=== PATIENT | male | born 1955 | race Two or more races ===

== ENCOUNTER 2023-06-20 18:13 | Inpatient (IN) | payer MEDICARE, BC ==
[2023-06-20 19:46] LABS: B. PARAPERTUSSIS- RESP PCR PAN NOT DETECTED; B. PERTUSSIS- RESP PCR PANEL NOT DETECTED; C. PNEUMONIAE- RESP PCR PANEL NOT DETECTED; CORONAVIRUS 229E-RESP PCR NOT DETECTED; CORONAVIRUS HKU1-RESP PCR NOT DETECTED; CORONAVIRUS NL63-RESP PCR NOT DETECTED; CORONAVIRUS OC43-RESP PCR NOT DETECTED; HUMAN METAPNEUMOVIRUS NOT DETECTED; INFLUENZA A- RESP PCR PANEL NOT DETECTED; INFLUENZA B - RESP PCR PANEL NOT DETECTED; M. PNEUMONIAE- RESP PCR PANEL NOT DETECTED; PARAINFLUENZA VIRUS 1 NOT DETECTED; PARAINFLUENZA VIRUS 2 NOT DETECTED; PARAINFLUENZA VIRUS 3 NOT DETECTED; PARAINFLUENZA VIRUS 4 NOT DETECTED; RHINOVIRUS/ENTEROVIRUS NOT DETECTED; RSV- RESP PCR PANEL NOT DETECTED; SARS-CoV-2 -RESP PCR PANEL NOT DETECTED
--- NOTE | 2023-06-20 19:51 | ED Physician Documentation ---
History of Present Illness - Stated complaint Stated Complaint: BODY ACHES/CHILLS - Chief complaint Chief Complaint: Fever - History obtained from History obtained from: Patient - History of Present Illness Timing: How many days ago (3) Pain level max: 6 Pain level now: 5 - Additonal information Additional information: Patient is a 68-year-old male who presents to the emergency department with fever and chills, states that this started about 3 days ago. States generally feeling unwell. He has left flank/left abdominal pain as well. Nothing seems to make it better or worse. No rhinorrhea, cough, congestion. No sore throat. No nausea or vomiting. No diarrhea or constipation. No urinary symptoms. Review of Systems Constitutional: reports: Fever, Chills, Myalgias Nose: denies: Rhinorrhea / runny nose, Congestion Throat: denies: Sore throat GI: denies: Vomiting : denies: Dysuria, Frequency, Hesitancy Skin: denies: Rash Musculoskeletal: denies: Neck pain, Back pain Neurologic: denies: Headache PD PAST MEDICAL HISTORY - Past Medical History Past Medical History: Yes Endocrine/Autoimmune: Type 2 diabetes - Past Surgical History Past Surgical History: No - Allergies Allergies/Adverse Reactions: Allergies Allergy/AdvReac Type Severity Reaction Status Date / Time VALE Inhibitors AdvReac Unknown Verified 06/20/23 18:33 - Living Situation Living Situation: reports: With family Living Arrangement: reports: At home - Social History Does the pt have substance abuse?: No - Family History Family history: reports: Non contributory PD ED PE NORMAL - Vitals Vital signs reviewed: Yes - General General: Alert and oriented X 3, No acute distress - HEENT HEENT: PERRL, Moist mucous membranes - Neck Neck: Supple, no meningeal sign - Cardiac Cardiac: RRR, Strong equal pulses - Respiratory Respiratory: No respiratory distress, Clear bilaterally - Abdomen Abdomen: Normal bowel sounds, Soft, Non tender, Non distended - Back Back: Other (Mild left CVA tenderness to palpation) - Derm Derm: Warm and dry - Extremities Extremities: No edema, No calf tenderness / cord - Neuro Neuro: Alert and oriented X 3 - Psych Psych: Normal mood, Normal affect Results - Vitals Vitals: Vital Signs - 24 hr 06/20/23 18:34 Temperature 38.1 C H Heart Rate 87 Respiratory 18 Rate Blood Pressure 124/63 O2 Saturation 95 Oxygen O2 Source Room air - Labs Labs: Laboratory Tests 06/20/23 06/20/23 06/20/23 18:40 20:12 20:17 WBC 9.0 RBC 4.54 L Hgb 14.3 Hct 42.2 MCV 93.0 MCH 31.5 H MCHC 33.9 RDW 12.1 Plt Count 184 MPV 8.3 Neut # (Auto) 7.0 H Lymph # (Auto) 0.6 L Weber # (Auto) 1.3 H Eos # (Auto) 0.0 Baso # (Auto) 0.0 Absolute Nucleated RBC 0.00 Nucleated RBC % 0.0 Sodium Potassium Chloride Carbon Dioxide Anion Gap BUN Creatinine Estimated GFR (MDRD) Glucose Lactic Acid Calcium Total Bilirubin AST ALT Alkaline Phosphatase Total Protein Albumin Globulin Albumin/Globulin Ratio Lipase Urine Color YELLOW Urine Clarity CLEAR Urine pH 6.0 Ur Specific [place] <=1.005 Urine Protein NEGATIVE Urine Glucose (UA) NEGATIVE Urine Ketones NEGATIVE Urine Occult Blood SMALL H Urine Nitrite NEGATIVE Urine Bilirubin NEGATIVE Urine Urobilinogen 0.2 (NORMAL) Ur Leukocyte Esterase LARGE H Urine RBC 0-5 Urine WBC >25 H Ur Squamous Epith Cells NONE SEEN Urine Bacteria Rare Ur Microscopic Review INDICATED Urine Culture Comments INDICATED Nasal Adenovirus (PCR) NOT DETECTED Nasal B. parapertussis DNA (PCR) NOT DETECTED Nasal Coronavir 229E PCR NOT DETECTED Nasal Coronavir HKU1 PCR NOT DETECTED Nasal Coronavir NL63 PCR NOT DETECTED Nasal Coronavir OC43 PCR NOT DETECTED Nasal Enterovir/Rhinovir PCR NOT DETECTED Nasal Influenza B PCR NOT DETECTED Nasal Influenza A PCR NOT DETECTED Nasal Parainfluen 1 PCR NOT DETECTED Nasal Parainfluen 2 PCR NOT DETECTED Nasal Parainfluen 3 PCR NOT DETECTED Nasal Parainfluen 4 PCR NOT DETECTED Nasal RSV (PCR) NOT DETECTED Nasal B.pertussis DNA PCR NOT DETECTED Nasal C.pneumoniae (PCR) NOT DETECTED Tarun Human Metapneumo PCR NOT DETECTED Nasal M.pneumoniae (PCR) NOT DETECTED Nasal SARS-CoV-2 (PCR) NOT DETECTED 06/20/23 06/20/23 20:17 20:17 WBC RBC Hgb Hct MCV MCH MCHC RDW Plt Count MPV Neut # (Auto) Lymph # (Auto) [place] # (Auto) Eos # (Auto) Baso # (Auto) Absolute Nucleated RBC Nucleated RBC % Sodium 132 L Potassium 4.4 Chloride 97 L Carbon Dioxide 26 Anion Gap 9.0 BUN 18 Creatinine 1.8 H Estimated GFR (MDRD) 38 L Glucose 150 H Lactic Acid 0.7 Calcium 9.8 Total Bilirubin 0.7 AST 71 H ALT 61 H Alkaline Phosphatase 84 Total Protein 7.5 Albumin 4.2 Globulin 3.3 Albumin/Globulin Ratio 1.3 Lipase 70 Urine Color Urine Clarity Urine pH Ur Specific [place] Urine Protein Urine Glucose (UA) Urine Ketones Urine Occult Blood Urine Nitrite Urine Bilirubin Urine Urobilinogen Ur Leukocyte Esterase Urine RBC Urine WBC Ur Squamous Epith Cells Urine Bacteria Ur Microscopic Review Urine Culture Comments Nasal Adenovirus (PCR) Nasal B. parapertussis DNA (PCR) Nasal Coronavir 229E PCR Nasal Coronavir HKU1 PCR Nasal Coronavir NL63 PCR Nasal Coronavir OC43 PCR Nasal Enterovir/Rhinovir PCR Nasal Influenza B PCR Nasal Influenza A PCR Nasal Parainfluen 1 PCR Nasal Parainfluen 2 PCR Nasal Parainfluen 3 PCR Nasal Parainfluen 4 PCR Nasal RSV (PCR) Nasal B.pertussis DNA PCR Nasal C.pneumoniae (PCR) Tarun Human Metapneumo PCR Nasal M.pneumoniae (PCR) Nasal SARS-CoV-2 (PCR) - Rads (name of study) CT abdomen pelvis Relevant Findings:: Final report received, See rad report cxr Relevant Findings:: Final report received, See rad report (no acute disease) PD Medical Decision Making - ED course Complexity details: reviewed results, re-evaluated patient, considered differential, d/w patient, d/w family, d/w senior talent management consultant ED course: Patient is a 68-year-old male who presents to the emergency department with fever and chills. He is found to have a UTI and on CT scan has multiple stones in the left ureter with hydronephrosis. Blood cultures drawn. Normal lactate. Started on IV fluids and IV Rocephin. Discussed the case with Dr. Gaston, urology who will see the patient in the morning and plan for stone removal. Patient is n.p.o. starting now. Discussed the case with the nighttime tele-hospitalist. The patient will be admitted for further care. This document was made in part using voice recognition software. While efforts are made to proofread this document, sound alike and grammatical errors may occur. Departure - Departure Disposition: 66 [facility] DC/Xfer Clinical Impression: Pyelonephritis, Ureteral stone DM2 (diabetes mellitus, type 2) Qualifiers: Diabetes mellitus care home insulin use: without care home use Diabetes mellitus complication status: without complication Qualified Code(s): E11.9 - Type 2 diabetes mellitus without complications Hypertension Qualifiers: Hypertension type: unspecified Qualified Code(s): I10 - Essential (primary) hypertension Condition: Stable
[2023-06-20 20:25] LABS: BASOPHILS % (AUTO) 0.4 %; EOSINOPHILS % (AUTO) 0.1 %; HCT - HEMATOCRIT 42.2 % (42.0-52.0); HGB - HEMOGLOBIN 14.3 g/dL (14.0-18.0); LYMPHOCYTES # (AUTO) 0.6 10^3/uL (1.5-3.5); LYMPHOCYTES % (AUTO) 6.6 %; MEAN CORPUSCULAR HEMOGLOBIN 31.5 pg (27.0-31.0); MEAN CORPUSCULAR HGB CONC 33.9 g/dL (32.0-36.0); MEAN PLATELET VOLUME 8.3 fL (7.4-11.4); MONOCYTES # (AUTO) 1.3 10^3/uL (0.0-1.0); MONOCYTES % (AUTO) 14.3 %; NEUTROPHILS % (AUTO) 78.4 %; PLT - PLATELET COUNT 184 10^3/uL (130-450); RED BLOOD COUNT 4.54 10^6/uL (4.70-6.10); RED CELL DISTRIBUTION WIDTH 12.1 % (12.0-15.0)
[2023-06-20 20:31] LABS: BILIRUBIN,URINE NEGATIVE (NEGATIVE); CLARITY,URINE CLEAR (CLEAR); GLUCOSE, URINE (UA) NEGATIVE (NEGATIVE); KETONES,URINE (UA) NEGATIVE (NEGATIVE); LEUKOCYTE ESTERASE, URINE LARGE (NEGATIVE); NITRITE,URINE NEGATIVE (NEGATIVE); OCCULT BLOOD,URINE SMALL (NEGATIVE); PROTEIN,URINE NEGATIVE (NEGATIVE); UROBILINOGEN,URINE 0.2 (NORMAL) E.U./dL (NORMAL)
[2023-06-20 20:36] LABS: ALBUMIN 4.2 g/dL (3.2-5.5); ALBUMIN/GLOBULIN RATIO 1.3 (1.0-2.2); BILIRUBIN,TOTAL 0.7 mg/dL (0.2-1.0); CALCIUM 9.8 mg/dL (8.5-10.3); CREATININE 1.8 mg/dL (0.6-1.3); POTASSIUM 4.4 mmol/L (3.5-4.5); TOTAL PROTEIN 7.5 g/dL (6.4-8.9)
[2023-06-20 20:48] LABS: WBC,URINE >25 /HPF (0-3)
[2023-06-20 20:49] LABS: BACTERIA,URINE Rare /HPF (None Seen); RBC,URINE 0-5 /HPF (0-5); SQUAMOUS EPITHELIAL CELL,UR NONE SEEN (<= Few)
--- NOTE | 2023-06-20 20:53 | XRAY Report ---
PROCEDURE: Chest 1 View X-Ray INDICATIONS: fever TECHNIQUE: One view of the chest was acquired. COMPARISON: None. FINDINGS: Surgical changes and devices: None. Lungs and pleura: No pleural effusions or pneumothorax. Lungs are clear. Mediastinum: Mediastinal contours appear normal. Heart size is normal. Bones and chest wall: No suspicious bony lesions. Overlying soft tissues appear unremarkable. IMPRESSION: No acute cardiopulmonary disease. Reviewed by: Heron Schultz MD on 06/20/2023 8:52 PM PDT Approved by: Heron Schultz MD on 06/20/2023 8:52 PM PDT Station ID: [id number]
[2023-06-20] MEDS ORDERED: cefTRIAXone 1 GM VIAL IVP STA (21:19)
[2023-06-20] MEDS ORDERED: SODIUM CHLORIDE 0.9% 1,000 ML IV STA (21:20)
[2023-06-20] MEDS ORDERED: SODIUM CHLORIDE FLUSH 0.9% 10 ML SYRINGE IVP PRN (21:55)
[2023-06-20] MEDS ORDERED: HYDROmorphone 0.5 MG/0.5 ML SYRINGE IVP PRN (21:55)
[2023-06-20] MEDS ORDERED: ONDANSETRON 4 MG/2 ML VIAL IVP PRN (21:55)
[2023-06-20] MEDS ORDERED: ALBUTEROL NEB 2.5 MG/3 ML INH PRN (22:00)
[2023-06-20] MEDS ORDERED: cefTRIAXone 1 GM in SODIUM CHLORIDE 0.9% MINIBAG 100 ML IV STA (22:07)
--- NOTE | 2023-06-20 22:13 | HISTORY & PHYSICAL EXAMINATION ---
Chief Complaint - Chief Complaint Chief Complaint: left flank pain and chills History of Present Illness - Admitted From Admitted From:: ED - History Obtained From Records Reviewed: EMR History obtained from: EMR, ED, and Patient Exam Limitations: Tele Medicine - History of Present Illness HPI Comment/Other: [id number] c DM2 and HTN presenting with left flank pain and chills. Left flank pain started 3-4 days ago. He denies trauma. No hematuria. He thought the pain was from GERD. He tried acetaminophen and Tums without improvement. He came into the ED tonight because he was having chills. In the ED, he was noted for left sided ureteral stones and hydronephrosis. ED spoke with [facility] urology who will see in am. Patient received a dose of abx in the ED. History - Past Medical History Cardiovascular: reports: Hypertension, High cholesterol Endocrine/Autoimmune: reports: Type 2 diabetes Psych: reports: Depression - Family & Social History Living arrangement: At home Living Situation: With family Meds/Allgy - Allergies Allergies/Adverse Reactions: Allergies Allergy/AdvReac Type Severity Reaction Status Date / Time VALE Inhibitors AdvReac Unknown Verified 06/20/23 18:33 Review of Systems - Constitutional Constitutional: reports: Chills - Genitourinary Genitourinary: reports: Flank pain Exam - Vital Signs Reviewed Vital Signs: Yes Vital Signs: Vital Signs x48h Temp Pulse Resp BP Pulse Ox 06/20/23 18:34 38.1 C H 87 18 124/63 95 - Physical Exam General Appearance: positive: No acute distress, Alert Eyes Bilateral: positive: Normal inspection ENT: positive: ENT inspection nml Neck: positive: Nml inspection Respiratory: positive: No respiratory distress, Breath sounds nml. negative: Wheezes, Rales, Rhonchi Cardiovascular: positive: Regular rate & rhythm Abdomen: positive: Non-tender Back: positive: CVA tenderness (L) Skin: positive: Color nml Extremities: positive: Full ROM, Nml appearance Neurologic/Psychiatric: positive: Oriented x3, CN's nml (2-12) Conclusion/Plan - Problem List (1) Ureteral stone Conclusion/Plan: noted on CT imaging. urology consulted. npo. iv fluid support. abx. pain control. antiemetics. Flomax. (2) Pyelonephritis Conclusion/Plan: empiric abx. followup blood and urine culture. (3) Acute renal failure Conclusion/Plan: noted creatinine 1.8. unclear baseline. in setting of infection, likely pre renal. will hold losartan. iv fluid. treat pyelo and ureteral stones as noted above (4) DM2 (diabetes mellitus, type 2) Conclusion/Plan: hold oral DM2 meds while in the hospital. cover with SSI and monitor c accucheck (5) Hypertension Conclusion/Plan: controlled. holding losartan 2/2 ARF. cover with prn hydralazine (6) Hypercholesterolemia Conclusion/Plan: managed. restart rosuvastatin equivalent. no Zetia equivalent available. (7) Major depression, recurrent Conclusion/Plan: stable. no flare. restart home Sertraline and Bupropion - Lab Results Fish Bones: 06/20/23 20:17 06/20/23 20:17 Core Measures - Anticipated LOS I expect patient to be DC'd or transferred within 96 hours.: Yes - Issues Hospital Issues and Management Plan: The patient consented to receive this telemedicine service, which I performed via live two-way audiovisual equipment. The patient is at ([facility]) and I am physically in [facility]. A nurse assisted me in the visit. - DVT/VTE - Prophylaxis VTE/DVT Device ordered at admit?: Yes Telemedicine Consult Details - Provider Location & Consult Time Telemedicine consultation conducted via videoconferencing?: Yes List names and roles of persons who participated in consult:: Patient and ED and RN Telemedicine provider location:: [facility] Time Telemedicine consult began:: 21:51 Time Telemedicine consult completed:: 22:56
[2023-06-20] MEDS ORDERED: ALBUTEROL NEB 2.5 MG/3 ML INH ONE (22:14)
[2023-06-20] MEDS ORDERED: hydrALAZINE INJ 20 MG/ML VIAL IVP PRN (22:18)
[2023-06-20] MEDS ORDERED: ATORVASTATIN 40 MG TABLET PO STA (22:27)
[2023-06-20] MEDS: ACETAMINOPHEN 325 MG TABLET PO PRN (22:42)
--- NOTE | 2023-06-20 22:47 | CT Report ---
PROCEDURE: ABDOMEN/PELVIS W INDICATIONS: abd pain, fever CONTRAST: Opti 320 100ml TECHNIQUE: After the administration of intravenous contrast, 5 mm thick sections acquired from the diaphragms to the symphysis. 5 mm thick coronal and sagittal reformats were acquired. For radiation dose reducti on, the following was used: automated exposure control, adjustment of mA and/or kV according to sean ent size. COMPARISON: None. FINDINGS: Image quality: Excellent. Lung bases: Unremarkable. Heart: Heart is normal in size. There is a small hiatal hernia. ABDOMEN: Liver:There is hypoattenuation of the liver consistent with fatty infiltration. A few scattered smal l hypodense foci within the right hepatic lobe are too small to characterize but likely represent cys ts. Gallbladder:Surgically absent. Biliary ducts:There is minimal biliary ductal dilatation which may be related to prior cholecystecto my. Pancreas: Unremarkable. Spleen: Normal in size. Adrenal Glands: No adrenal nodules. Kidneys and Ureters:There are a few clustered urinary stones within the left ureteral pelvic junctio n with mild to moderate left hydronephrosis. There is associated mild perinephric stranding and delay ed enhancement of the left kidney. A small 0.3 cm stone is also demonstrated in the mid left ureter. Mild urothelial thickening demonstrated in the left renal collecting system with minimal hydroureter. There are 3 additional nonobstructing left renal stones in the left kidney measuring up to 0.3 cm. N o right hydronephrosis or right renal stones. Stomach and Bowel: Stomach, small bowel loops, and colon are normal in caliber and wall thickness. Peritoneum: No abnormal intraperitoneal fluid. No free air. Ventral Wall: No hernia. Abdominal Nodes: No retroperitoneal or mesenteric adenopathy by size criteria. Vessels: Aorta and inferior vena cava are normal in size. PELVIS: Pelvic Organs: Unremarkable. Bladder: Unremarkable. Pelvic Nodes: No enlarged lymph nodes. Miscellaneous: No inguinal hernias. Bones: Visualized osseous structures demonstrate no suspicious lesions. IMPRESSION: 1. Multiple clustered obstructing urinary stones at the left UPJ with mild to moderate left hydroneph rosis. 2. Additional small stones within the left kidney and mid left ureter as described. Reviewed by: Heron Schultz MD on 06/20/2023 10:46 PM PDT Approved by: Heron Schultz MD on 06/20/2023 10:46 PM PDT Station ID: [id number]
[2023-06-20] MEDS: TAMSULOSIN 0.4 MG CAPSULE PO SCH (23:35)
[2023-06-21] MEDS: ACETAMINOPHEN 325 MG TABLET PO PRN ×4 (03:03→17:08)
[2023-06-21] MEDS: oxyCODONE 5 MG TABLET PO PRN ×4 (03:06→21:01)
[2023-06-21] MEDS: SODIUM CHLORIDE 0.9% 1,000 ML IV SCH ×2 (03:07→15:38)
[2023-06-21] MEDS: SODIUM CHLORIDE FLUSH 0.9% 10 ML SYRINGE IVP SCH ×3 (03:09→15:38)
[2023-06-21] MEDS ORDERED: IOVERSOL 320 100 ML VIAL IVP ONE (06:24)
[2023-06-21] MEDS ORDERED: INSULIN LISPRO 300 UNIT/3 ML PEN SUBQ SCH (07:00)
--- NOTE | 2023-06-21 07:09 | CONSULTATION NOTE ---
Referring Provider Name of Referring Provider:: Dr Vance Consult Date: 06/21/23 Chief Complaint - Chief Complaint Chief Complaint: Left Ureteral stones History of Present Illness - Admitted From Admitted From:: ER - History Obtained From Records Reviewed: ER, hospitalist History obtained from: Patient and records - History of Present Illness HPI Comment/Other: 68yo M presents with left flank pain, low grade fever 38.1C. A UA showed concern for infection. He has hx of DM and HTN. He had a CT Scan in the ER showing multiple left ureteral stones near UPJ which are obstructing. He was started on ceftriaxone and admitted for further care. He feels a little improved this morning He states he had kidney stones in the past which passed spontaneously. Denies prior surgical intervention. He recently moved from [place]. History - Past Medical History Cardiovascular: reports: Hypertension, High cholesterol Endocrine/Autoimmune: reports: Type 2 diabetes Psych: reports: Depression - Past Surgical History General: reports: Cholecystectomy Ortho: reports: Knee replacement - Family & Social History Living arrangement: At home Living Situation: With family Meds/Allgy - Allergies Allergies/Adverse Reactions: Allergies Allergy/AdvReac Type Severity Reaction Status Date / Time VALE Inhibitors AdvReac Unknown Verified 06/20/23 18:33 Exam - Vital Signs Reviewed Vital Signs: Yes Vital Signs: Vital Signs x48h Temp Pulse Resp BP Pulse Ox 06/21/23 03:10 36.5 C 73 20 112/49 L 96 - Physical Exam Respiratory: positive: Breath sounds nml Cardiovascular: positive: Regular rate & rhythm Conclusion and Plan - Lab Results Laboratory Results 06/21/23 06:27: POC Whole Bld Glucose 136 H 06/20/23 22:38: POC Whole Bld Glucose 130 H 06/20/23 20:17: Lactic Acid 0.7 06/20/23 20:17: Sodium 132 L, Potassium 4.4, Chloride 97 L, Carbon Dioxide 26, Anion Gap 9.0, BUN 18, Creatinine 1.8 H, Estimated GFR (MDRD) 38 L, Glucose 150 H, Calcium 9.8, Total Bilirubin 0.7, AST 71 H, ALT 61 H, Alkaline Phosphatase 84, Total Protein 7.5, Albumin 4.2, Globulin 3.3, Albumin/Globulin Ratio 1.3, Lipase 70 06/20/23 20:17: WBC 9.0, RBC 4.54 L, Hgb 14.3, Hct 42.2, MCV 93.0, MCH 31.5 H, MCHC 33.9, RDW 12.1, Plt Count 184, MPV 8.3, Neut # (Auto) 7.0 H, Lymph # (Auto) 0.6 L, Green # (Auto) 1.3 H, Eos # (Auto) 0.0, Baso # (Auto) 0.0, Absolute Nucleated RBC 0.00, Nucleated RBC % 0.0 06/20/23 20:12: Urine Color YELLOW, Urine Clarity CLEAR, Urine pH 6.0, Ur Specific [place] <=1.005, Urine Protein NEGATIVE, Urine Glucose (UA) NEGATIVE, Urine Ketones NEGATIVE, Urine Occult Blood SMALL H, Urine Nitrite NEGATIVE, Urine Bilirubin NEGATIVE, Urine Urobilinogen 0.2 (NORMAL), Ur Leukocyte Esterase LARGE H, Urine RBC 0-5, Urine WBC >25 H, Ur Squamous Epith Cells NONE SEEN, Urine Bacteria Rare, Ur Microscopic Review INDICATED, Urine Culture Comments INDICATED 06/20/23 18:40: Nasal Adenovirus (PCR) NOT DETECTED, Nasal B. parapertussis DNA (PCR) NOT DETECTED, Nasal Coronavir 229E PCR NOT DETECTED, Nasal Coronavir HKU1 PCR NOT DETECTED, Nasal Coronavir NL63 PCR NOT DETECTED, Nasal Coronavir OC43 PCR NOT DETECTED, Nasal Enterovir/Rhinovir PCR NOT DETECTED, Nasal Influenza B PCR NOT DETECTED, Nasal Influenza A PCR NOT DETECTED, Nasal Parainfluen 1 PCR NOT DETECTED, Nasal Parainfluen 2 PCR NOT DETECTED, Nasal Parainfluen 3 PCR NOT DETECTED, Nasal Parainfluen 4 PCR NOT DETECTED, Nasal RSV (PCR) NOT DETECTED, Nasal B.pertussis DNA PCR NOT DETECTED, Nasal C.pneumoniae (PCR) NOT DETECTED, Tarun Human Metapneumo PCR NOT DETECTED, Nasal M.pneumoniae (PCR) NOT DETECTED, Nasal SARS-CoV-2 (PCR) NOT DETECTED - Diagnostic Imaging Results Diagnostic Imaging Results: positive: Read independently (left UPJ stones) - Diagnosis Diagnosis: Left UPJ stones - Consultation Note Consultation Note: 68yo M with possible DM hx, now with likely UTI, low grade fever, and obstructing left proximal ureteral stones. - Plan Plan: -NPO/IVF -continue empiric abx -add on for cystoscopy, left ureteral stent placement. Risks/benefits and alternatives discussed. He states full understanding and consents to the procedure. He will need definitive stone management as an outpatient
[2023-06-21] MEDS: TAMSULOSIN 0.4 MG CAPSULE PO SCH (08:37)
[2023-06-21] MEDS: LACTOBACILLUS RHAMNOSUS GG CAPSULE PO SCH (08:37)
[2023-06-21] MEDS: SERTRALINE 50 MG TABLET PO SCH (08:37)
[2023-06-21] MEDS: buPROPion XL 150 MG TABLET PO SCH (08:37)
[2023-06-21] MEDS ORDERED: fentaNYL 100 MCG/2 ML VIAL IVP PRN (08:50)
[2023-06-21] MEDS ORDERED: ATROPINE ABBOJECT 1 MG/10 ML SYRINGE IVP PRN (08:50)
[2023-06-21] MEDS ORDERED: NALOXONE 0.4 MG/ML VIAL IVP PRN (08:50)
[2023-06-21] MEDS ORDERED: HYDROmorphone 0.5 MG/0.5 ML SYRINGE IVP PRN (08:50)
[2023-06-21] MEDS ORDERED: METOCLOPRAMIDE 10 MG/2 ML VIAL IVP PRN (08:50)
[2023-06-21] MEDS ORDERED: ONDANSETRON 4 MG/2 ML VIAL IVP PRN (08:50)
[2023-06-21] MEDS ORDERED: MORPHINE 2 MG/ML CARPUJECT IVP PRN (08:50)
[2023-06-21] MEDS ORDERED: ePHEDrine 50 MG/ML VIAL IVP PRN (08:50)
--- NOTE | 2023-06-21 08:50 | ANESTHESIA ---
Pre-Anesthesia VS, & Labs - Diagnosis Diagnosis Left UPJ stones - Procedure cysto with ureteral stent placement Vital Signs: Temp Pulse Resp BP Pulse Ox O2 Flow Rate 36.6 C 75 18 108/62 95 06/21/23 07:45 06/21/23 07:45 06/21/23 07:45 06/21/23 07:45 06/21/23 07:45 Height: 5 ft 8 in Weight (kg): 80.5 kg Body Mass Index: 26.9 BMI Classification: Overweight - NPO >8 hours Last Fluid Intake: sips h20 in ER - Lab Results Current Lab Results: Laboratory Tests 06/21/23 06:27: POC Whole Bld Glucose 136 H 06/20/23 22:38: POC Whole Bld Glucose 130 H 06/20/23 20:17: Lactic Acid 0.7 06/20/23 20:17: Sodium 132 L, Potassium 4.4, Chloride 97 L, Carbon Dioxide 26, Anion Gap 9.0, BUN 18, Creatinine 1.8 H, Estimated GFR (MDRD) 38 L, Glucose 150 H, Calcium 9.8, Total Bilirubin 0.7, AST 71 H, ALT 61 H, Alkaline Phosphatase 84, Total Protein 7.5, Albumin 4.2, Globulin 3.3, Albumin/Globulin Ratio 1.3, Lipase 70 06/20/23 20:17: WBC 9.0, RBC 4.54 L, Hgb 14.3, Hct 42.2, MCV 93.0, MCH 31.5 H, MCHC 33.9, RDW 12.1, Plt Count 184, MPV 8.3, Neut # (Auto) 7.0 H, Lymph # (Auto) 0.6 L, [place] # (Auto) 1.3 H, Eos # (Auto) 0.0, Baso # (Auto) 0.0, Absolute Nucleated RBC 0.00, Nucleated RBC % 0.0 Lab results reviewed: Yes Fish Bones: 06/20/23 20:17 06/20/23 20:17 Home Medications and Allergies Active Medications Acetaminophen (Acetaminophen 325 Mg Tablet) 650 mg PO Q4HR PRN PRN Reason: Pain 1 to 4, or Fever Last Admin: 06/21/23 07:31 Dose: 650 mg Albuterol (Albuterol Neb 2.5 Mg/3 Ml) 2.5 mg INH Q6H PRN PRN Reason: sob Last Admin: 06/20/23 22:15 Dose: 2.5 mg Bupropion HCl (Bupropion Xl 150 Mg Tablet) 150 mg PO DAILY [facility] Last Admin: 06/21/23 08:37 Dose: 150 mg Hydralazine HCl (Hydralazine Inj 20 Mg/Ml Vial) 10 mg IVP Q6HR PRN PRN Reason: Hypertensive Emergency Hydromorphone HCl (Hydromorphone 0.5 Mg/0.5 Ml Syringe) 0.4 mg IVP Q3H PRN PRN Reason: Pain 8 to 10 Sodium Chloride (Normal Saline 0.9%) 1,000 mls @ 50 mls/hr IV .Q20H [facility] Last Admin: 06/21/23 03:07 Dose: 50 mls/hr Ceftriaxone Sodium 2 gm/ (Sodium Chloride) 100 mls @ 200 mls/hr IV DAILY [facility] Insulin Human Regular (Insulin Regular Human 300 Unit/3 Ml Vial) 1 - 5 unit SUBQ Q6HR [facility]; Protocol Lactobacillus Rhamnosus (Lactobacillus Rhamnosus Gg Capsule) 1 cap PO DAILY [facility] Last Admin: 06/21/23 08:37 Dose: 1 cap Ondansetron HCl (Ondansetron 4 Mg/2 Ml Vial) 4 mg IVP Q6HR PRN PRN Reason: Nausea / Vomiting Oxycodone HCl (Oxycodone 5 Mg Tablet) 5 mg PO Q4HR PRN PRN Reason: pain moderate Last Admin: 06/21/23 07:31 Dose: 5 mg Sertraline HCl (Sertraline 50 Mg Tablet) 50 mg PO DAILY [facility] Last Admin: 06/21/23 08:37 Dose: 50 mg Sodium Chloride (Sodium Chloride Flush 0.9% 10 Ml Syringe) 10 ml IVP PRN PRN PRN Reason: NEEDED PER PROVIDER ORDERS Sodium Chloride (Sodium Chloride Flush 0.9% 10 Ml Syringe) 10 ml IVP 0100,0900,1700 [facility] Last Admin: 06/21/23 08:37 Dose: Not Given Tamsulosin HCl (Tamsulosin 0.4 Mg Capsule) 0.4 mg PO DAILY [facility] Last Admin: 06/21/23 08:37 Dose: 0.4 mg Allergies/Adverse Reactions: Allergies Allergy/AdvReac Type Severity Reaction Status Date / Time VALE Inhibitors AdvReac Unknown Verified 06/20/23 18:33 Anes History & Medical History - Anesthetic History Anesthesia Complications: reports: No previous complications Family history of Anesthesia Complications: Denies Family history of Malignant Hyperthermia: Denies - Medical History Cardiovascular: reports: Hypertension, High cholesterol Gastrointestinal: reports: GERD Urinary: reports: Kidney stones Endocrine/Autoimmune: reports: Type 2 diabetes Smoking Status: Former smoker History of Cancer?: No - Surgical History General: reports: Cholecystectomy Orthopedic: reports: Knee replacement Exam General: Alert, Oriented x3, Cooperative Dental: Partials Upper, Partials Lower Mouth Openin Fingerbreadth Neck Mobility: Normal Mallampati classification: II Thyromental Distance: 4-6 cm Respiratory: Lungs clear, Normal breath sounds, No respiratory distress Cardiovascular: Regular rate Neurological: Normal speech Mental/Cognitive Status: Alert/Oriented X3, Normal for patient Cognitive Status: Within normal limits Plan Anesthesia Type: General Consent for Procedure(s) Verified and Reviewed: Yes Code Status: Attempt Resuscitation ASA classification: 2-Mild systemic disease Is this case an emergency?: Yes
--- NOTE | 2023-06-21 08:59 | PROVIDER PROGRESS NOTE ---
Assessment/Plan - Problem List (1) Pyelonephritis Assessment/Plan: No urine culture results are back yet Plan: Cont empiric abx. Await blood and urine culture. (2) Gram pos bacteremia Conclusion/Plan: This afternoon, his blood culture that was drawn yesterday, came back growing gram-positive cocci Plan: I will add Vanco to cover potential MRSA Await culture identification and sensitivities to tailor antibiotics (3) Ureteral stone Conclusion/Plan: noted on CT imaging. urology consulted. Plan: npofor undergoing ureteral stent placement today by Dr. Reynoso iv fluid support. Cont abx. pain control and prn antiemetics. Flomax strted (4) Hydronephrosis, left As per imaging. (5) Hydroureter Caused by obstructing stone. Plan: Awaiting stent placement here by Urol (6) Acute renal failure Conclusion/Plan: noted creatinine 1.8. unclear baseline. in setting of infection, likely pre renal. will hold losartan. iv fluid. treat pyelo and ureteral stones as noted above (7) DM2 (diabetes mellitus, type 2) Conclusion/Plan: Plan: Hold oral Metformin while in the hospital. Diabetic diet after his OR today then cover with SSI and monitor with accucheck (8) Elevated LFTs Etiology unclear. Avoid nephrotoxins Follow CMP daily (9) Hypertension Conclusion/Plan: controlled. holding losartan 2/2 ARF. cover with prn hydralazine (10) Major depression, recurrent Conclusion/Plan: stable. no flare. restart home Sertraline and Bupropion - Current Meds Current Meds: Current Medications Generic Name Dose Route Start Last Admin Trade Name Nat PRN Reason Stop Dose Admin Acetaminophen 650 mg 06/20/23 21:55 06/21/23 07:31 Acetaminophen 325 Mg Tablet PO 650 mg Q4HR PRN Administration Pain 1 to 4, or Fever Albuterol 2.5 mg 06/20/23 22:00 06/20/23 22:15 Albuterol Neb 2.5 Mg/3 Ml INH 2.5 mg Q6H PRN Administration sob Bupropion HCl 150 mg 06/21/23 09:00 06/21/23 08:37 Bupropion Xl 150 Mg Tablet PO 150 mg DAILY ANA Administration Sodium Chloride 1,000 mls @ 50 mls/hr 06/20/23 22:00 06/21/23 03:07 Normal Saline 0.9% IV 50 mls/hr .Q20H ANA Administration Lactobacillus Rhamnosus 1 cap 06/21/23 09:00 06/21/23 08:37 Lactobacillus Rhamnosus Gg Capsule PO 1 cap DAILY ANA Administration Oxycodone HCl 5 mg 06/20/23 21:55 06/21/23 07:31 Oxycodone 5 Mg Tablet PO 5 mg Q4HR PRN Administration pain moderate Sertraline HCl 50 mg 06/21/23 09:00 06/21/23 08:37 Sertraline 50 Mg Tablet PO 50 mg DAILY ANA Administration Sodium Chloride 10 ml 06/21/23 01:00 06/21/23 08:37 Sodium Chloride Flush 0.9% 10 Ml Syringe IVP Not Given 0100,0900,1700 ANA Tamsulosin HCl 0.4 mg 06/20/23 22:06 06/21/23 08:37 Tamsulosin 0.4 Mg Capsule PO 0.4 mg DAILY ANA Administration - Lab Result Fish Bone Diagrams: 06/22/23 04:41 06/22/23 04:41 - Additional Planning My Orders: My Active Orders 06/21/23 08:32 Blood Glucose POC [RC] 0000,0600,1200,1800 Initiate Hypoglycemia Protocol [RC] .protocol 06/21/23 12:00 Insulin Regular Human [Humulin R] 1 - 5 unit SUBQ Q6HR 06/22/23 05:00 BMP - BASIC METABOLIC PANEL [CHEM] DAILYLAB CBC - COMP BLD CT W/AUTO DIFF [HEME] DAILYLAB HEMOGLOBIN A1c% [CHEM] DAILYLAB MAGNESIUM [CHEM] DAILYLAB PHOSPHORUS [CHEM] DAILYLAB 06/23/23 05:00 BMP - BASIC METABOLIC PANEL [CHEM] DAILYLAB CBC - COMP BLD CT W/AUTO DIFF [HEME] DAILYLAB 06/24/23 05:00 BMP - BASIC METABOLIC PANEL [CHEM] DAILYLAB CBC - COMP BLD CT W/AUTO DIFF [HEME] DAILYLAB 06/25/23 05:00 BMP - BASIC METABOLIC PANEL [CHEM] DAILYLAB CBC - COMP BLD CT W/AUTO DIFF [HEME] DAILYLAB Subjective - Subjective Patient Reports: Feeling Better (On pain meds) Objective Vital Signs: Vital Signs - 24 hr 06/20/23 06/20/23 06/20/23 18:34 22:15 22:44 Temperature 38.1 C H 37.6 C Heart Rate 87 85 80 Heart Rate [ Radial] Respiratory 18 20 18 Rate Blood Pressure 124/63 150/104 H Blood Pressure [Right Radial artery] O2 Saturation 95 100 06/20/23 06/21/23 06/21/23 23:07 03:10 07:45 Temperature 38.1 C H 36.5 C 36.6 C Heart Rate Heart Rate [ 115 H 73 75 Radial] Respiratory 36 H 20 18 Rate Blood Pressure Blood Pressure 164/70 H 112/49 L 108/62 [Right Radial artery] O2 Saturation 92 96 95 Oxygen O2 Source Room air I&O (Last 24 Hrs): Intake and Output Totals x24h 06/19/23 06/20/23 06/21/23 23:59 23:59 23:59 Intake Total 1400 Output Total 1100 Balance 300 General: Alert, Oriented x3 HEENT: Mucous membr. moist/pink Neck: Supple, No JVD Neuro: Alert, Non Focal Cardiovascular: Regular rate, No murmurs Respiratory: No respiratory distress, Breath sounds nml Abdomen: Soft, No tenderness Extremities: No clubbing, No edema - Results Results: Laboratory Results WBC 9.0 x10^3/uL (4.8-10.8) 06/20/23 20:17 RBC 4.54 10^6/uL (4.70-6.10) L 06/20/23 20:17 Hgb 14.3 g/dL (14.0-18.0) 06/20/23 20:17 Hct 42.2 % (42.0-52.0) 06/20/23 20:17 MCV 93.0 fL (80.0-94.0) 06/20/23 20:17 MCH 31.5 pg (27.0-31.0) H 06/20/23 20:17 MCHC 33.9 g/dL (32.0-36.0) 06/20/23 20:17 RDW 12.1 % (12.0-15.0) 06/20/23 20:17 Plt Count 184 10^3/uL (130-450) 06/20/23 20:17 MPV 8.3 fL (7.4-11.4) 06/20/23 20:17 Neut # (Auto) 7.0 10^3/uL (1.5-6.6) H 06/20/23 20:17 Lymph # (Auto) 0.6 10^3/uL (1.5-3.5) L 06/20/23 20:17 [place] # (Auto) 1.3 10^3/uL (0.0-1.0) H 06/20/23 20:17 Eos # (Auto) 0.0 10^3/uL (0.0-0.7) 06/20/23 20:17 Baso # (Auto) 0.0 10^3/uL (0.0-0.1) 06/20/23 20:17 Absolute Nucleated RBC 0.00 x10^3/uL 06/20/23 20:17 Nucleated RBC % 0.0 /100WBC 06/20/23 20:17 Sodium 132 mmol/L (135-145) L 06/20/23 20:17 Potassium 4.4 mmol/L (3.5-4.5) 06/20/23 20:17 Chloride 97 mmol/L (101-111) L 06/20/23 20:17 Carbon Dioxide 26 mmol/L (21-32) 06/20/23 20:17 Anion Gap 9.0 (6-13) 06/20/23 20:17 BUN 18 mg/dL (6-20) 06/20/23 20:17 Creatinine 1.8 mg/dL (0.6-1.3) H 06/20/23 20:17 Estimated GFR (MDRD) 38 (>89) L 06/20/23 20:17 Glucose 150 mg/dL (74-104) H 06/20/23 20:17 POC Whole Bld Glucose 136 mg/dL (70 - 100) H 06/21/23 06:27 Lactic Acid 0.7 mmol/L (0.5-2.2) 06/20/23 20:17 Calcium 9.8 mg/dL (8.5-10.3) 06/20/23 20:17 Total Bilirubin 0.7 mg/dL (0.2-1.0) 06/20/23 20:17 AST 71 IU/L (10-42) H 06/20/23 20:17 ALT 61 IU/L (10-60) H 06/20/23 20:17 Alkaline Phosphatase 84 IU/L (42-121) 06/20/23 20:17 Total Protein 7.5 g/dL (6.4-8.9) 06/20/23 20:17 Albumin 4.2 g/dL (3.2-5.5) 06/20/23 20:17 Globulin 3.3 g/dL (2.1-4.2) 06/20/23 20:17 Albumin/Globulin Ratio 1.3 (1.0-2.2) 06/20/23 20:17 Lipase 70 U/L (11-82) 06/20/23 20:17 Urine Color YELLOW 06/20/23 20:12 Urine Clarity CLEAR (CLEAR) 06/20/23 20:12 Urine pH 6.0 PH (5.0-7.5) 06/20/23 20:12 Ur Specific [place] <=1.005 (1.002-1.030) 06/20/23 20:12 Urine Protein NEGATIVE mg/dL (NEGATIVE) 06/20/23 20:12 Urine Glucose (UA) NEGATIVE mg/dL (NEGATIVE) 06/20/23 20:12 Urine Ketones NEGATIVE mg/dL (NEGATIVE) 06/20/23 20:12 Urine Occult Blood SMALL (NEGATIVE) H 06/20/23 20:12 Urine Nitrite NEGATIVE (NEGATIVE) 06/20/23 20:12 Urine Bilirubin NEGATIVE (NEGATIVE) 06/20/23 20:12 Urine Urobilinogen 0.2 (NORMAL) E.U./dL (NORMAL) 06/20/23 20:12 Ur Leukocyte Esterase LARGE (NEGATIVE) H 06/20/23 20:12 Urine RBC 0-5 /HPF (0-5) 06/20/23 20:12 Urine WBC >25 /HPF (0-3) H 06/20/23 20:12 Ur Squamous Epith Cells NONE SEEN (<= Few) 06/20/23 20:12 Urine Bacteria Rare /HPF (None Seen) 06/20/23 20:12 Ur Microscopic Review INDICATED 06/20/23 20:12 Urine Culture Comments INDICATED 06/20/23 20:12 Nasal Adenovirus (PCR) NOT DETECTED 06/20/23 18:40 Nasal B. parapertussis DNA (PCR) NOT DETECTED 06/20/23 18:40 Nasal Coronavir 229E PCR NOT DETECTED 06/20/23 18:40 Nasal Coronavir HKU1 PCR NOT DETECTED 06/20/23 18:40 Nasal Coronavir NL63 PCR NOT DETECTED 06/20/23 18:40 Nasal Coronavir OC43 PCR NOT DETECTED 06/20/23 18:40 Nasal Enterovir/Rhinovir PCR NOT DETECTED 06/20/23 18:40 Nasal Influenza B PCR NOT DETECTED 06/20/23 18:40 Nasal Influenza A PCR NOT DETECTED 06/20/23 18:40 Nasal Parainfluen 1 PCR NOT DETECTED 06/20/23 18:40 Nasal Parainfluen 2 PCR NOT DETECTED 06/20/23 18:40 Nasal Parainfluen 3 PCR NOT DETECTED 06/20/23 18:40 Nasal Parainfluen 4 PCR NOT DETECTED 06/20/23 18:40 Nasal RSV (PCR) NOT DETECTED 06/20/23 18:40 Nasal B.pertussis DNA PCR NOT DETECTED 06/20/23 18:40 Nasal C.pneumoniae (PCR) NOT DETECTED 06/20/23 18:40 Tarun Human Metapneumo PCR NOT DETECTED 06/20/23 18:40 Nasal M.pneumoniae (PCR) NOT DETECTED 06/20/23 18:40 Nasal SARS-CoV-2 (PCR) NOT DETECTED 06/20/23 18:40
[2023-06-21] MEDS ORDERED: LACTATED RINGERS 1,000 ML IV SCH (09:00)
[2023-06-21] MEDS ORDERED: INSULIN REGULAR HUMAN 300 UNIT/3 ML VIAL SUBQ SCH (12:00)
[2023-06-21] MEDS ORDERED: LIDOCAINE 2% URO-JET 5 ML SYRINGE UR ONE (12:26)
[2023-06-21] MEDS ORDERED: MIDAZOLAM 2 MG/2 ML VIAL ONE (12:36)
[2023-06-21] MEDS ORDERED: ONDANSETRON 4 MG/2 ML VIAL ONE (12:37)
[2023-06-21] MEDS ORDERED: KETOROLAC 30 MG/ML VIAL ONE (12:37)
[2023-06-21] MEDS ORDERED: DEXAMETHASONE 4 MG/ML VIAL ONE (12:37)
[2023-06-21] MEDS ORDERED: PROPOFOL 200 MG/20 ML VIAL IVP ONE (12:37)
[2023-06-21] MEDS ORDERED: fentaNYL 100 MCG/2 ML VIAL ONE (12:37)
[2023-06-21] MEDS ORDERED: LIDOCAINE-PF 2% 10 ML AMP SUBQ ONE (12:37)
[2023-06-21] MEDS ORDERED: ACETAMINOPHEN 1,000 MG/100 ML 1,000 MG/100 ML BAG IV ONE (13:02)
[2023-06-21] MEDS ORDERED: ePHEDrine 50 MG/ML VIAL IVP ONE (13:04)
[2023-06-21] MEDS ORDERED: LACTATED RINGERS 1,000 ML IV ONE (13:17)
--- NOTE | 2023-06-21 13:20 | OPERATIVE REPORT ---
Operative Report - General Admit Date: 06/20/23 Procedure Date: 06/21/23 Planned Procedure: Cystoscopy, left ureteral stent placement Pre-Op Diagnosis: Left ureteral stone Procedure Performed: Cystoscopy, left ureteral stent placement Post Op Diagnosis: Left ureteral stone - Procedure Note Primary Surgeon: Alek Anesthesia Provider: CLARA Estimated Blood Loss (mL): 0 Indications: Left ureteral stone, UTI Findings: Stent placed, no xray confirmation, but efflux showed to be in correct position Complications: no xray to confirm placement - Other Other Information/Narrative: After informed consent was obtained the patient brought to the OR and laid in the supine position. At that point time the patient was anesthetized per anesthesia protocols and prepped in usual sterile fashion. He was put in the lithotomy position A 22 Romanian cystoscope was advanced easily into the urinary bladder. The urinary bladder had debridement consistent with a cystitis. A sensor wire was placed to the left UO up into the kidney where there was a small influx of purulent urine. A 6 Romanian 26 cm double-J ureteral stent was placed up the wire. There was immediate efflux of purulent urine. The stent had a good curl in the bladder and there was continuous drainage of what appeared to be purulent urine. Our x-ray machine unfortunately was not working and the alternate was being used in another surgery. Rather than have the patient wait anesthetized for a prolonged period I was satisfied at the placement of where the stent was and so elected to end the procedure. His bladder was drained and a Uro-Jet was placed. The patient was brought to PACU without further incident, the instrument count was correct. Plan: KUB in PACU. Complete 2 weeks of antibiotics. Followup for stent and stone management in next 1-2 weeks
--- NOTE | 2023-06-21 14:20 | ANESTHESIA POST OP EVALUATION ---
Anesthesia Post Eval - Post Anesthesia Eval Vitals: Last Vital Signs Temp 36.9 C 06/21/23 13:55 Pulse 82 06/21/23 13:55 Resp 20 06/21/23 13:55 BP 90/51 L 06/21/23 13:55 Pulse Ox 96 06/21/23 13:55 O2 Flow Rate CV Function Including HR & BP: Stable Pain Control: Satisfactory Nausea & Vomiting: Negative Mental Status: Baseline Respiratory Status: Airway Patent Hydration Status: Satisfactory Anesthesia Complications: None
--- NOTE | 2023-06-21 14:31 | XRAY Report ---
PROCEDURE: Abdomen 1 View X-Ray INDICATIONS: s/p left ureteral stent placement TECHNIQUE: One view of the abdomen acquired. COMPARISON: CT abdomen pelvis 06/20/2023. FINDINGS: Surgical changes and devices: Left ureteral stent in place. Right upper quadrant surgical clips. Bowel: Bowel gas pattern is normal. Soft tissues: Possible small stone measuring less than 3 mm in the pelvis directly adjacent to the ur eteral stent.. Visualized solid organ contours appear normal in size. Bones: No suspicious bony lesions. IMPRESSION: Left ureteral stent in place. Possible small stone measuring less than 3 mm projecting over the left patella tracks adjacent to the ureteral stent. Reviewed by: Mitesh Rapp MD on 06/21/2023 2:30 PM PDT Approved by: Mitesh Rapp MD on 06/21/2023 2:30 PM PDT Station ID: [id number]
--- NOTE | 2023-06-21 14:54 | PHARMACY PROGRESS NOTE ---
- Best Possible Medication History Admit Date and Time: 06/20/23 8603 Processed by: Pharmacy Medication History completed: Yes Patient Interview: Pt interview ONLY source PATIENT INTERVIEW ONLY SOURCE ON LIST. PATIENT KNEW MEDICATIONS VERY WELL BUT REQUIRED PROMPTING ON STRENGTHS OF MOST. As the person ultimately responsible for medication therapy, providers are able to order a medication from an existing home medication list in [facility] via the "Reconcile Routine" prior to Confirmation of that medication by business support manager. Such practice is discouraged except when the physician, in their clinical judgment, deems that a medical need exists for a medication without regard to previous use.
[2023-06-21] MEDS: INSULIN LISPRO 300 UNIT/3 ML PEN SUBQ SCH ×2 (16:55→21:01)
[2023-06-21] MEDS ORDERED: VANCOMYCIN INJ 2 GM in SODIUM CHLORIDE 0.9% 500 ML IV ONE (19:00)
[2023-06-21] MEDS: cefTRIAXone 2 GM in SODIUM CHLORIDE 0.9% MINIBAG 100 ML IV SCH (21:00)
[2023-06-22] MEDS: ACETAMINOPHEN 325 MG TABLET PO PRN ×3 (00:03→08:34)
[2023-06-22 05:08] LABS: BASOPHILS % (AUTO) 0.1 %; HCT - HEMATOCRIT 35.3 % (42.0-52.0); HGB - HEMOGLOBIN 11.8 g/dL (14.0-18.0); LYMPHOCYTES # (AUTO) 0.6 10^3/uL (1.5-3.5); LYMPHOCYTES % (AUTO) 7.5 %; MEAN CORPUSCULAR HEMOGLOBIN 31.2 pg (27.0-31.0); MEAN CORPUSCULAR HGB CONC 33.4 g/dL (32.0-36.0); MEAN CORPUSCULAR VOLUME 93.4 fL (80.0-94.0); MEAN PLATELET VOLUME 8.9 fL (7.4-11.4); MONOCYTES # (AUTO) 0.8 10^3/uL (0.0-1.0); MONOCYTES % (AUTO) 9.1 %; NEUTROPHILS % (AUTO) 82.9 %; PLT - PLATELET COUNT 190 10^3/uL (130-450); RED BLOOD COUNT 3.78 10^6/uL (4.70-6.10); RED CELL DISTRIBUTION WIDTH 12.1 % (12.0-15.0); WHITE BLOOD COUNT 8.4 x10^3/uL (4.8-10.8)
[2023-06-22 05:25] LABS: CALCIUM 8.5 mg/dL (8.5-10.3); CREATININE 1.1 mg/dL (0.6-1.3); MAGNESIUM 2.2 mg/dL (1.7-2.3); PHOSPHORUS 3.4 mg/dL (2.5-5.0); POTASSIUM 4.2 mmol/L (3.5-4.5)
--- NOTE | 2023-06-22 07:56 | PROVIDER PROGRESS NOTE ---
Assessment/Plan - Problem List (1) Pyelonephritis Assessment/Plan: No urine culture results are back yet Plan: Cont empiric abx. Await blood and urine culture. (2) Ureteral stone Conclusion/Plan: noted on CT imaging. urology consulted. Plan: npofor undergoing ureteral stent placement today by Dr. Reynoso iv fluid support. Cont abx. pain control and prn antiemetics. Flomax strted (3) Hydronephrosis, left As per imaging. (4) Hydroureter Caused by obstructing stone. Plan: Awaiting stent placement here by Urol (5) Acute renal failure Conclusion/Plan: noted creatinine 1.8. unclear baseline. in setting of infection, likely pre renal. will hold losartan. iv fluid. treat pyelo and ureteral stones as noted above (6) DM2 (diabetes mellitus, type 2) Conclusion/Plan: Plan: Hold oral Metformin while in the hospital. Diabetic diet after his OR today then cover with SSI and monitor with accucheck (7) Elevated LFTs Etiology unclear. Avoid nephrotoxins Follow CMP daily (8) Hypertension Conclusion/Plan: controlled. holding losartan 2/2 ARF. cover with prn hydralazine (9) Major depression, recurrent Conclusion/Plan: stable. no flare. restart home Sertraline and Bupropion (10) Gram pos bacteremia Conclusion/Plan: The pos blood culture drawn at admission, was only in 1 of 2 draws and is Staph epider, therefore a contaminant came back growing gram-positive cocci Plan: No Vanco needed - Current Meds Current Meds: Current Medications Generic Name Dose Route Start Last Admin Trade Name [place]q PRN Reason Stop Dose Admin Acetaminophen 650 mg 06/20/23 21:55 06/22/23 04:41 Acetaminophen 325 Mg Tablet PO 650 mg Q4HR PRN Administration Pain 1 to 4, or Fever Albuterol 2.5 mg 06/20/23 22:00 06/20/23 22:15 Albuterol Neb 2.5 Mg/3 Ml INH 2.5 mg Q6H PRN Administration sob Bupropion HCl 150 mg 06/21/23 09:00 06/21/23 08:37 Bupropion Xl 150 Mg Tablet PO 150 mg DAILY ANA Administration Sodium Chloride 1,000 mls @ 50 mls/hr 06/20/23 22:00 06/21/23 20:29 Normal Saline 0.9% IV 50 mls/hr .Q20H ANA Infusion Ceftriaxone Sodium 2 gm/ 100 mls @ 200 mls/hr 06/21/23 21:00 06/21/23 22:22 Sodium Chloride IV Infused DAILY ANA Infusion Lactobacillus Rhamnosus 1 cap 06/21/23 09:00 06/21/23 08:37 Lactobacillus Rhamnosus Gg Capsule PO 1 cap DAILY ANA Administration Oxycodone HCl 5 mg 06/20/23 21:55 06/21/23 21:01 Oxycodone 5 Mg Tablet PO 5 mg Q4HR PRN Administration pain moderate Sertraline HCl 50 mg 06/21/23 09:00 06/21/23 08:37 Sertraline 50 Mg Tablet PO 50 mg DAILY ANA Administration Sodium Chloride 10 ml 06/21/23 01:00 06/22/23 00:00 Sodium Chloride Flush 0.9% 10 Ml Syringe IVP 10 ml 0100,0900,1700 ANA Administration Tamsulosin HCl 0.4 mg 06/20/23 22:06 06/21/23 08:37 Tamsulosin 0.4 Mg Capsule PO 0.4 mg DAILY ANA Administration - Lab Result Fish Bone Diagrams: 06/22/23 04:41 06/22/23 04:41 - Additional Planning My Orders: My Active Orders 06/21/23 08:32 Initiate Hypoglycemia Protocol [RC] .protocol 06/21/23 Dinner Regular Diet [DIET] 06/22/23 04:41 HEMOGLOBIN A1c% [CHEM] DAILYLAB 06/22/23 08:00 Insulin Lispro [Humalog Kwikpen U-100] 1 - 9 unit SUBQ 0800,1200,1700,2100 06/22/23 19:00 Vancomycin Inj [Vancomycin] 1 gm Sodium Chloride 0.9% [Normal Saline 0.9%] 250 ml IV Q24H 06/23/23 05:00 BMP - BASIC METABOLIC PANEL [CHEM] DAILYLAB CBC - COMP BLD CT W/AUTO DIFF [HEME] DAILYLAB 06/24/23 05:00 BMP - BASIC METABOLIC PANEL [CHEM] DAILYLAB CBC - COMP BLD CT W/AUTO DIFF [HEME] DAILYLAB 06/25/23 05:00 BMP - BASIC METABOLIC PANEL [CHEM] DAILYLAB CBC - COMP BLD CT W/AUTO DIFF [HEME] DAILYLAB Objective Vital Signs: Vital Signs - 24 hr 06/21/23 06/21/23 06/21/23 11:05 13:15 13:20 Temperature 37.0 C 36.7 C 36.7 C Heart Rate 83 82 Heart Rate [ 79 Brachial] Respiratory 18 20 20 Rate Blood Pressure 99/47 L 100/48 L Blood Pressure [Right Brachial artery] Blood Pressure 131/58 H [Right Radial artery] O2 Saturation 96 100 99 06/21/23 06/21/23 06/21/23 13:25 13:30 13:35 Temperature 36.7 C 36.8 C 36.9 C Heart Rate 82 84 83 Heart Rate [ Brachial] Respiratory 20 20 20 Rate Blood Pressure 99/44 L 91/48 L 100/47 L Blood Pressure [Right Brachial artery] Blood Pressure [Right Radial artery] O2 Saturation 98 96 96 06/21/23 06/21/23 06/21/23 13:40 13:45 13:50 Temperature 36.9 C 36.9 C 36.8 C Heart Rate 82 85 83 Heart Rate [ Brachial] Respiratory 19 20 20 Rate Blood Pressure 106/45 L 99/52 L 97/55 L Blood Pressure [Right Brachial artery] Blood Pressure [Right Radial artery] O2 Saturation 96 96 97 06/21/23 06/21/23 06/21/23 13:55 14:05 14:35 Temperature 36.9 C 37.1 C 37.1 C Heart Rate 82 Heart Rate [ 80 81 Brachial] Respiratory 20 16 18 Rate Blood Pressure 90/51 L Blood Pressure [Right Brachial artery] Blood Pressure 100/40 L 115/44 L [Right Radial artery] O2 Saturation 96 92 94 06/21/23 06/21/23 06/21/23 15:02 15:27 20:59 Temperature 36.1 C L 38.2 C H 36.2 C L Heart Rate Heart Rate [ 80 77 66 Brachial] Respiratory 18 16 20 Rate Blood Pressure Blood Pressure 113/51 L 111/50 L [Right Brachial artery] Blood Pressure 116/49 L [Right Radial artery] O2 Saturation 98 94 94 06/21/23 06/22/23 06/22/23 23:50 00:01 02:00 Temperature 36.3 C L Heart Rate 60 64 Heart Rate [ 68 Brachial] Respiratory 20 Rate Blood Pressure Blood Pressure 106/54 L [Right Brachial artery] Blood Pressure [Right Radial artery] O2 Saturation 100 06/22/23 04:45 Temperature 36.4 C L Heart Rate Heart Rate [ 64 Brachial] Respiratory 18 Rate Blood Pressure Blood Pressure 111/61 [Right Brachial artery] Blood Pressure [Right Radial artery] O2 Saturation 95 Oxygen O2 Source Patient supplied BIPAP I&O (Last 24 Hrs): Intake and Output Totals x24h 06/20/23 06/21/23 06/22/23 23:59 23:59 23:59 Intake Total 4575.167 Output Total 1900 700 Balance 2675.167 -700 - Results Results: Laboratory Results WBC 8.4 x10^3/uL (4.8-10.8) 06/22/23 04:41 RBC 3.78 10^6/uL (4.70-6.10) L 06/22/23 04:41 Hgb 11.8 g/dL (14.0-18.0) L 06/22/23 04:41 Hct 35.3 % (42.0-52.0) L 06/22/23 04:41 MCV 93.4 fL (80.0-94.0) 06/22/23 04:41 MCH 31.2 pg (27.0-31.0) H 06/22/23 04:41 MCHC 33.4 g/dL (32.0-36.0) 06/22/23 04:41 RDW 12.1 % (12.0-15.0) 06/22/23 04:41 Plt Count 190 10^3/uL (130-450) 06/22/23 04:41 MPV 8.9 fL (7.4-11.4) 06/22/23 04:41 Neut # (Auto) 7.0 10^3/uL (1.5-6.6) H 06/22/23 04:41 Lymph # (Auto) 0.6 10^3/uL (1.5-3.5) L 06/22/23 04:41 [place] # (Auto) 0.8 10^3/uL (0.0-1.0) 06/22/23 04:41 Eos # (Auto) 0.0 10^3/uL (0.0-0.7) 06/22/23 04:41 Baso # (Auto) 0.0 10^3/uL (0.0-0.1) 06/22/23 04:41 Absolute Nucleated RBC 0.00 x10^3/uL 06/22/23 04:41 Nucleated RBC % 0.0 /100WBC 06/22/23 04:41 Sodium 135 mmol/L (135-145) 06/22/23 04:41 Potassium 4.2 mmol/L (3.5-4.5) 06/22/23 04:41 Chloride 102 mmol/L (101-111) 06/22/23 04:41 Carbon Dioxide 26 mmol/L (21-32) 06/22/23 04:41 Anion Gap 7.0 (6-13) 06/22/23 04:41 BUN 17 mg/dL (6-20) 06/22/23 04:41 Creatinine 1.1 mg/dL (0.6-1.3) 06/22/23 04:41 Estimated GFR (MDRD) 67 (>89) L 06/22/23 04:41 Glucose 163 mg/dL (74-104) H 06/22/23 04:41 POC Whole Bld Glucose 149 mg/dL (70 - 100) H 06/22/23 07:49 Lactic Acid 0.7 mmol/L (0.5-2.2) 06/20/23 20:17 Calcium 8.5 mg/dL (8.5-10.3) 06/22/23 04:41 Phosphorus 3.4 mg/dL (2.5-5.0) 06/22/23 04:41 Magnesium 2.2 mg/dL (1.7-2.3) 06/22/23 04:41 Total Bilirubin 0.7 mg/dL (0.2-1.0) 06/20/23 20:17 AST 71 IU/L (10-42) H 06/20/23 20:17 ALT 61 IU/L (10-60) H 06/20/23 20:17 Alkaline Phosphatase 84 IU/L (42-121) 06/20/23 20:17 Total Protein 7.5 g/dL (6.4-8.9) 06/20/23 20:17 Albumin 4.2 g/dL (3.2-5.5) 06/20/23 20:17 Globulin 3.3 g/dL (2.1-4.2) 06/20/23 20:17 Albumin/Globulin Ratio 1.3 (1.0-2.2) 06/20/23 20:17 Lipase 70 U/L (11-82) 06/20/23 20:17 Urine Color YELLOW 06/20/23 20:12 Urine Clarity CLEAR (CLEAR) 06/20/23 20:12 Urine pH 6.0 PH (5.0-7.5) 06/20/23 20:12 Ur Specific [place] <=1.005 (1.002-1.030) 06/20/23 20:12 Urine Protein NEGATIVE mg/dL (NEGATIVE) 06/20/23 20:12 Urine Glucose (UA) NEGATIVE mg/dL (NEGATIVE) 06/20/23 20:12 Urine Ketones NEGATIVE mg/dL (NEGATIVE) 06/20/23 20:12 Urine Occult Blood SMALL (NEGATIVE) H 06/20/23 20:12 Urine Nitrite NEGATIVE (NEGATIVE) 06/20/23 20:12 Urine Bilirubin NEGATIVE (NEGATIVE) 06/20/23 20:12 Urine Urobilinogen 0.2 (NORMAL) E.U./dL (NORMAL) 06/20/23 20:12 Ur Leukocyte Esterase LARGE (NEGATIVE) H 06/20/23 20:12 Urine RBC 0-5 /HPF (0-5) 06/20/23 20:12 Urine WBC >25 /HPF (0-3) H 06/20/23 20:12 Ur Squamous Epith Cells NONE SEEN (<= Few) 06/20/23 20:12 Urine Bacteria Rare /HPF (None Seen) 06/20/23 20:12 Ur Microscopic Review INDICATED 06/20/23 20:12 Urine Culture Comments INDICATED 06/20/23 20:12 Nasal Adenovirus (PCR) NOT DETECTED 06/20/23 18:40 Nasal B. parapertussis DNA (PCR) NOT DETECTED 06/20/23 18:40 Nasal Coronavir 229E PCR NOT DETECTED 06/20/23 18:40 Nasal Coronavir HKU1 PCR NOT DETECTED 06/20/23 18:40 Nasal Coronavir NL63 PCR NOT DETECTED 06/20/23 18:40 Nasal Coronavir OC43 PCR NOT DETECTED 06/20/23 18:40 Nasal Enterovir/Rhinovir PCR NOT DETECTED 06/20/23 18:40 Nasal Influenza B PCR NOT DETECTED 06/20/23 18:40 Nasal Influenza A PCR NOT DETECTED 06/20/23 18:40 Nasal Parainfluen 1 PCR NOT DETECTED 06/20/23 18:40 Nasal Parainfluen 2 PCR NOT DETECTED 06/20/23 18:40 Nasal Parainfluen 3 PCR NOT DETECTED 06/20/23 18:40 Nasal Parainfluen 4 PCR NOT DETECTED 06/20/23 18:40 Nasal RSV (PCR) NOT DETECTED 06/20/23 18:40 Nasal B.pertussis DNA PCR NOT DETECTED 06/20/23 18:40 Nasal C.pneumoniae (PCR) NOT DETECTED 06/20/23 18:40 Tarun Human Metapneumo PCR NOT DETECTED 06/20/23 18:40 Nasal M.pneumoniae (PCR) NOT DETECTED 06/20/23 18:40 Nasal SARS-CoV-2 (PCR) NOT DETECTED 06/20/23 18:40
--- NOTE | 2023-06-22 08:22 | PROVIDER PROGRESS NOTE ---
Subjective - Prog Note Date Prog Note Date: 06/22/23 Prog Note Time: 08:20 - Subjective Pt reports feeling: Improved Objective - Vital Signs/Intake & Output Reviewed Vital Signs: Yes Vital Signs: Vital Signs x48h Temp Pulse Pulse Resp BP Pulse Ox 06/22/23 04:45 36.4 C L 64 18 111/61 95 06/22/23 02:00 64 Intake & Output: Intake & Output 06/19/23 06/20/23 06/21/23 06/22/23 23:59 23:59 23:59 23:59 Intake Total 4575.167 Output Total 1900 700 Balance 7416.167 700 - Objective General Appearance: positive: No acute distress Respiratory: positive: No respiratory distress, Breath sounds nml - Lab Results Fish Bones: 06/22/23 04:41 06/22/23 04:41 Other Labs: Lab Results x24hrs 06/22/23 06/22/23 06/22/23 Range/Units 07:49 04:41 04:41 WBC 8.4 (4.8-10.8) x10^3/uL RBC 3.78 L (4.70-6.10) 10^6/uL Hgb 11.8 L (14.0-18.0) g/dL Hct 35.3 L (42.0-52.0) % MCV 93.4 (80.0-94.0) fL MCH 31.2 H (27.0-31.0) pg MCHC 33.4 (32.0-36.0) g/dL RDW 12.1 (12.0-15.0) % Plt Count 190 (130-450) 10^3/uL MPV 8.9 (7.4-11.4) fL Neut # (Auto) 7.0 H (1.5-6.6) 10^3/uL Lymph # (Auto) 0.6 L (1.5-3.5) 10^3/uL [place] # (Auto) 0.8 (0.0-1.0) 10^3/uL Eos # (Auto) 0.0 (0.0-0.7) 10^3/uL Baso # (Auto) 0.0 (0.0-0.1) 10^3/uL Absolute Nucleated RBC 0.00 x10^3/uL Nucleated RBC % 0.0 /100WBC Sodium 135 (135-145) mmol/L Potassium 4.2 (3.5-4.5) mmol/L Chloride 102 (101-111) mmol/L Carbon Dioxide 26 (21-32) mmol/L Anion Gap 7.0 (6-13) BUN 17 (6-20) mg/dL Creatinine 1.1 (0.6-1.3) mg/dL Estimated GFR (MDRD) 67 L (>89) Glucose 163 H (74-104) mg/dL POC Whole Bld Glucose 149 H (70 - 100) mg/dL Calcium 8.5 (8.5-10.3) mg/dL Phosphorus 3.4 (2.5-5.0) mg/dL Magnesium 2.2 (1.7-2.3) mg/dL 06/21/23 06/21/23 06/21/23 Range/Units 20:56 16:32 11:00 WBC (4.8-10.8) x10^3/uL RBC (4.70-6.10) 10^6/uL Hgb (14.0-18.0) g/dL Hct (42.0-52.0) % MCV (80.0-94.0) fL MCH (27.0-31.0) pg MCHC (32.0-36.0) g/dL RDW (12.0-15.0) % Plt Count (130-450) 10^3/uL MPV (7.4-11.4) fL Neut # (Auto) (1.5-6.6) 10^3/uL Lymph # (Auto) (1.5-3.5) 10^3/uL [place] # (Auto) (0.0-1.0) 10^3/uL Eos # (Auto) (0.0-0.7) 10^3/uL Baso # (Auto) (0.0-0.1) 10^3/uL Absolute Nucleated RBC x10^3/uL Nucleated RBC % /100WBC Sodium (135-145) mmol/L Potassium (3.5-4.5) mmol/L Chloride (101-111) mmol/L Carbon Dioxide (21-32) mmol/L Anion Gap (6-13) BUN (6-20) mg/dL Creatinine (0.6-1.3) mg/dL Estimated GFR (MDRD) (>89) Glucose (74-104) mg/dL POC Whole Bld Glucose 302 H 256 H 127 H (70 - 100) mg/dL Calcium (8.5-10.3) mg/dL Phosphorus (2.5-5.0) mg/dL Magnesium (1.7-2.3) mg/dL ABX Reporting Has patient been on IV antibiotics over the past 48 hours?: Yes Assessment/Plan - Problem List (1) Ureteral stone Impression: Watson is feeling much better after his stent placement yesterday. His lab work looks benign. His urine culture was negative, or only grew out likely a skin contaminant. However, I suspect he did have an infection and perhaps was stuck behind his stone as his urine was quite purulent at the time of procedure. He should go home with 7 days of Keflex or similar antibiotic. My office will arrange follow-up for his stent and stone in the next week or 2
[2023-06-22 08:32] LABS: ESTIMATED AVERAGE GLUCOSE 137 mg/dL (70-100); HEMOGLOBIN A1c% 6.4 % (4.27-6.07)
[2023-06-22] MEDS: LACTOBACILLUS RHAMNOSUS GG CAPSULE PO SCH (08:32)
[2023-06-22] MEDS: TAMSULOSIN 0.4 MG CAPSULE PO SCH (08:32)
[2023-06-22] MEDS: buPROPion XL 150 MG TABLET PO SCH (08:32)
[2023-06-22] MEDS: SERTRALINE 50 MG TABLET PO SCH (08:32)
[2023-06-22] MEDS: INSULIN LISPRO 300 UNIT/3 ML PEN SUBQ SCH ×2 (08:36→12:38)
[2023-06-22] MEDS: cefTRIAXone 2 GM in SODIUM CHLORIDE 0.9% MINIBAG 100 ML IV SCH (08:36)
[2023-06-22] MEDS: SODIUM CHLORIDE FLUSH 0.9% 10 ML SYRINGE IVP SCH ×2 (08:56)
[2023-06-22 10:22] VITALS: BP 140/87; O2SAT 99
--- NOTE | 2023-06-22 11:58 | Discharge Plan ---
Discharge Plan Problem Reviewed?: Yes Disposition: 01 Home, Self Care Condition: Stable Prescriptions: Glimepiride [Amaryl] 2 mg PO DAILY #30 tab Aspirin [Aspirin EC] 81 mg PO DAILY #30 tab busPIRone [Buspar] 15 mg PO DAILY #30 tab Losartan [Cozaar] 50 mg PO DAILY #30 tab Rosuvastatin Calcium [Crestor] 10 mg PO QPM #30 tab Lactobacillus Rhamnosus GG [Culturelle] 1 cap PO DAILY #6 cap Tamsulosin [Flomax] 0.4 mg PO DAILY #30 cap metFORMIN [Glucophage] 1,000 mg PO BIDWM #120 tab cephALEXin [Keflex] 500 mg PO QID #24 cap Tirzepatide [Mounjaro] 2.5 mg SUBQ OAW #1 ea [place]-3 Fatty Acids [[place]-3] 1 cap PO HS #30 cap Famotidine [Pepcid] 20 mg PO BID #60 tab Vitamin B Complex 1 tab PO DAILY #30 tab Ascorbic Acid [Vitamin C] 500 mg PO DAILY #30 tab Ergocalciferol (Vitamin D2) [Vitamin D2] 50 mcg PO DAILY #30 cap Vitamin E Mixed [Vitamin E] 400 unit PO DAILY #30 cap buPROPion [Wellbutrin Xl] 150 mg PO DAILY #30 tab Ezetimibe [Zetia] 10 mg PO DAILY #30 tab Diet: Diabetic Activity Restrictions: Activity as Tolerated Shower Restrictions: No Driving Restrictions: No Instruction Topics: Stents Ureteral, Kidney Stones Health Concerns: You were hospitalized to treat a urinary tract infection which was brought on by having multiple kidney stones. You underwent placement of a stent in the ureter to let the stones pass. You got IV antibiotics. You are being discharged home today to take several more days of oral antibiotics (plus a probiotic), and a new urology medication. The Urologist would like you to see h im in 1 to 2 weeks to further manage the stent in your stones. Call for an appointment: [phone]. Please resume all your other pre-hospital medications. Crestor should be taken at bedtime. Follow a diabetic diet and do your fingertick checks. All your medications were refilled for you so you have them for a month until you establish care with a primary care provider here on [facility]. Plan of Treatment: As above. Care Goals: Improvement in symptoms and stabilization are the goals. Assessment: The patient understands and is agreeable with the plan. Additional Instructions or Follow Up instructions: If you have new or worsening symptoms, call your PCP or Dr. Gaston the Urologist for advice, or come to the ER. No Smoking: If you smoke, Please STOP! Call for help. Follow-up with: Tony Gaston MD [Provider Admit Priv/Credential] -
--- NOTE | 2023-06-22 12:43 | DISCHARGE SUMMARY ---
Discharge Summary Admit Date: 06/20/23 Discharge Date: 06/22/23 Discharging Provider: Dr Snow Barksdale Primary Care Provider: None Condition at Discharge: Stable Discharge Disposition: 01 Home, Self Care - HPI History of Present Illness: 68 y/o M c DM2 and HTN presenting with left flank pain and chills. Left flank pain started 3-4 days ago. He denies trauma. No hematuria. He thought the pain was from GERD. He tried acetaminophen and Tums without improvement. He came into the ED tonight because he was having chills. In the ED, CT was noted for left sided ureteral stones and hydronephrosis. ED spoke with oncall urology who will see in am. Patient received a dose of abx in the ED. He will be admitted to Hospitalist team. - HOSPITAL COURSE Hospital Course: (1) Pyelonephritis He was put on empiric IV antibiotics. There were no urine or blood culture results to tailor treatment. He was discharged to take several more days of Keflex 500 mg QID for 6 more days. (2) Ureteral stone Stones were noted on CT imaging. Urology consulted and pt underwent ureteral stent placement by Dr. Acevedo. He got iv fluid support, antibiotics and pain control. Also Flomax was started and he was discharged on this. The Urologist would like to see him in 1 to 2 weeks to further manage the stent and stones. (3) Hydronephrosis, left As per imaging. Caused by obstructing stone. He underwent stent placement here by Urology (4) Hydroureter Caused by obstructing stone. He underwent stent placement here by Urology (5) Acute renal failure Creatinine 1.8. Unclear baseline. In setting of infection, this is likely pre renal. We held losartan, gave iv fluids and treated his pyelo and ureteral stones as above (6) DM2 (diabetes mellitus, type 2) We held is oral Metformin while in the hospital. Diabetic diet started after his OR and his glucose was covered with sliding scale Insulin and monitored with accuchecks. (7) Elevated LFTs Etiology unclear. We avoided hepatotoxins. (8) Hypertension BP was controlled. We held the Losartan due to ARF, and ordered prn hydralazine. At discharge, all meds were resumed. (9) Major depression, recurrent He was stable. We continued his home Sertraline and Bupropion (10) Gram pos bacteremia The pos blood culture drawn at admission, was only in 1 of 2 bottles and was Staph epidermidis, therefore was considered a contaminant. No Vanco was needed. - ALLERGIES Allergies/Adverse Reactions: Allergies Allergy/AdvReac Type Severity Reaction Status Date / Time VALE Inhibitors AdvReac Unknown Verified 06/20/23 18:33 - MEDICATIONS Home Medications: Ambulatory Orders Medication Instructions Recorded Confirmed Ascorbic Acid [Vitamin C] 500 mg PO DAILY #30 tab 06/22/23 Aspirin [Aspirin EC] 81 mg PO DAILY #30 tab 06/22/23 Ergocalciferol (Vitamin D2) 50 mcg PO DAILY #30 cap 06/22/23 [Vitamin D2] Ezetimibe [Zetia] 10 mg PO DAILY #30 tab 06/22/23 Famotidine [Pepcid] 20 mg PO BID #60 tab 06/22/23 Glimepiride [Amaryl] 2 mg PO DAILY #30 tab 06/22/23 Lactobacillus Rhamnosus GG 1 cap PO DAILY #6 cap 06/22/23 [Culturelle] Losartan [Cozaar] 50 mg PO DAILY #30 tab 06/22/23 [place]-3 Fatty Acids [[place]-3] 1 cap PO HS #30 cap 06/22/23 Rosuvastatin Calcium [Crestor] 10 mg PO QPM #30 tab 06/22/23 Tamsulosin [Flomax] 0.4 mg PO DAILY #30 cap 06/22/23 Tirzepatide [Mounjaro] 2.5 mg SUBQ OAW #1 ea 06/22/23 Vitamin B Complex 1 tab PO DAILY #30 tab 06/22/23 Vitamin E Mixed [Vitamin E] 400 unit PO DAILY #30 cap 06/22/23 buPROPion [Wellbutrin Xl] 150 mg PO DAILY #30 tab 06/22/23 busPIRone [Buspar] 15 mg PO DAILY #30 tab 06/22/23 cephALEXin [Keflex] 500 mg PO QID #24 cap 06/22/23 metFORMIN [Glucophage] 1,000 mg PO BIDWM #120 tab 06/22/23 - PHYSICAL EXAM AT DISCHARGE General Appearance: positive: No acute distress, Alert Eyes Bilateral: positive: Normal inspection, EOMI ENT: positive: ENT inspection nml, No signs of dehydration Neck: positive: Nml inspection, No JVD Respiratory: positive: No respiratory distress, Breath sounds nml Cardiovascular: positive: Regular rate & rhythm, No murmur Abdomen: positive: Non-tender, Nml bowel sounds, No distention Skin: positive: Warm, Dry Extremities: positive: Non-tender, No pedal edema Neurologic/Psychiatric: positive: Oriented x3, Motor nml - LABS Result Diagrams: 06/22/23 04:41 06/22/23 04:41 - DIAGNOSTIC IMAGING Diagnostic Imaging Results: Final report reviewed - FOLLOW UP Follow Up: See PCP and Urologist for a hospital F/U visit. - TIME SPENT Time Spent in Discharge (Minutes): 35
[2023-06-22] MEDS ORDERED: VANCOMYCIN INJ 1 GM in SODIUM CHLORIDE 0.9% 250 ML IV SCH (19:00)
== END 2023-06-22 12:58 | disposition home or self-care (01) | DRG 660 ==
LOC: ED 18:13 → MS2 21:55
PROVIDERS: ADMIT Internal Medicine; ATTEND Internal Medicine
PROC: 0T778DZ Dilation of Left Ureter with Intraluminal Device, Via Natural or Artificial Opening Endoscopic (ICD-10-PCS; principal; 2023-06-21 12:00)
DX: N13.6 Pyonephrosis (principal); F33.9 Major depressive disorder, recurrent, unspecified; E11.9 Type 2 diabetes mellitus without complications; Z20.822 Contact with and (suspected) exposure to COVID-19; I10 Essential (primary) hypertension; N17.9 Acute kidney failure, unspecified; R79.89 Other specified abnormal findings of blood chemistry; E78.00 Pure hypercholesterolemia, unspecified; Z79.84 Long term (current) use of oral hypoglycemic drugs; Z79.899 Other long term (current) drug therapy
CPT/HCPCS: 36415; 71045; 74018; 74177; 80048; 80053; 81001; 83036; 83605; 83690; 83735; 84100; 85025; 87040; 87086; 87150; 87181; 87633; 94660; 94664; 99284; 99285; A9270; C1758; C2617; J0131; J3370; J7120; Q9967; 81003

== ENCOUNTER 2023-07-03 08:08 | Day surgery (SDC) | payer MEDICARE, BC ==
[~2023-07-03 08:08] MED LIST: ceFAZolin 2 GM VIAL ONE
[2023-07-03] MEDS ORDERED: LACTATED RINGERS 1,000 ML IV ONE ×2 (08:35→10:43)
--- NOTE | 2023-07-03 08:52 | ANESTHESIA ---
Pre-Anesthesia VS, & Labs - Diagnosis Left kidney stone - Procedure cystoscopy, left ureteroscopy, laser lithotripsy, stent exchange Vital Signs: Temp Pulse Resp BP Pulse Ox O2 Flow Rate 36.8 C 76 16 127/66 97 07/03/23 08:35 07/03/23 08:35 07/03/23 08:35 07/03/23 08:35 07/03/23 08:35 Height: 5 ft 7 in Weight (kg): 81.65 kg Body Mass Index: 28.1 BMI Classification: Overweight - NPO >8 hours Last Fluid Intake: sip of water - Lab Results Current Lab Results: Laboratory Tests 07/03/23 08:39: POC Whole Bld Glucose 153 H Lab results reviewed: Yes Home Medications and Allergies Allergies/Adverse Reactions: Allergies Allergy/AdvReac Type Severity Reaction Status Date / Time VALE Inhibitors AdvReac cough Verified 06/29/23 10:10 Anes History & Medical History - Anesthetic History Anesthesia Complications: reports: No previous complications - Medical History Cardiovascular: reports: Hypertension, High cholesterol Pulmonary: reports: Sleep apnea, CPAP use Gastrointestinal: reports: GERD Urinary: reports: Kidney stones Neuro: reports: None Musculoskeletal: reports: Osteoarthritis Endocrine/Autoimmune: reports: Type 2 diabetes Skin: reports: None Smoking Status: Former smoker Psychosocial: reports: No issues indicated History of Cancer?: No - Surgical History General: reports: Cholecystectomy Urologic: reports: Kidney stents Orthopedic: reports: Knee replacement Exam General: Alert, Oriented x3, Cooperative, No acute distress Mouth Openin Fingerbreadth Neck Mobility: Normal Mallampati classification: III Thyromental Distance: less than 4 cm Mental/Cognitive Status: Alert/Oriented X3, Normal for patient Plan Anesthesia Type: General Consent for Procedure(s) Verified and Reviewed: Yes Code Status: Attempt Resuscitation ASA classification: 2-Mild systemic disease Is this case an emergency?: No
[2023-07-03] MEDS ORDERED: ATROPINE ABBOJECT 1 MG/10 ML SYRINGE IVP PRN (08:54)
[2023-07-03] MEDS ORDERED: NALOXONE 0.4 MG/ML VIAL IVP PRN (08:54)
[2023-07-03] MEDS ORDERED: fentaNYL 100 MCG/2 ML VIAL IVP PRN (08:54)
[2023-07-03] MEDS ORDERED: HYDROmorphone 0.5 MG/0.5 ML SYRINGE IVP PRN (08:54)
[2023-07-03] MEDS ORDERED: MORPHINE 2 MG/ML CARPUJECT IVP PRN (08:54)
[2023-07-03] MEDS ORDERED: ONDANSETRON 4 MG/2 ML VIAL IVP PRN ×2 (08:54→10:49)
[2023-07-03] MEDS ORDERED: LACTATED RINGERS 1,000 ML IV SCH (09:00)
[2023-07-03] MEDS ORDERED: PROPOFOL 500 MG/50 ML 500 MG/50 ML VIAL ONE (09:49)
[2023-07-03] MEDS ORDERED: fentaNYL 100 MCG/2 ML VIAL ONE (09:50)
[2023-07-03] MEDS ORDERED: LIDOCAINE 2% URO-JET 5 ML SYRINGE UR ONE ×2 (09:51→10:04)
[2023-07-03] MEDS ORDERED: ePHEDrine 50 MG/ML VIAL IVP ONE (10:11)
[2023-07-03] MEDS ORDERED: PHENYLEPHRINE 10 MG/ML VIAL ONE (10:19)
[2023-07-03] MEDS ORDERED: KETOROLAC 30 MG/ML VIAL ONE (10:32)
[2023-07-03] MEDS ORDERED: HYDROcod/ACETAM 5/325 MG TABLET PO PRN (10:49)
--- NOTE | 2023-07-03 10:52 | Discharge Plan ---
Discharge Plan Problem Reviewed?: Yes Disposition: Home, Self Care Condition: Good Prescriptions: Docusate Sodium 100Mg Capsule [Colace 100Mg Capsule] 100 mg PO DAILY #7 cap cephALEXin [Keflex] 500 mg PO ONCE #1 cap HYDROcod/ACETAM 5/325 [[place] 5/325] 1 tab PO Q4H PRN #10 tablet PRN Reason: Pain Diet: Diabetic Activity Restrictions: No Restrictions Shower Restrictions: No Driving Restrictions: No Instruction Topics: Stents Ureteral Additional Instructions or Follow Up instructions: You will be contacted for follow-up with Dr. Gaston's clinic in 1 to 2 weeks No Smoking: If you smoke, Please STOP! Call for help. Follow-up with: Tony Gaston MD [Provider Admit Priv/Credential] -
--- NOTE | 2023-07-03 10:56 | OPERATIVE REPORT ---
Operative Report - General Procedure Date: 07/03/23 Planned Procedure: Cystoscopy left ureteroscopy laser lithotripsy and stent exchange Pre-Op Diagnosis: Left ureteral stone Procedure Performed: Cystoscopy left ureteroscopy laser lithotripsy and stent exchange Post Op Diagnosis: Left renal stone - Procedure Note Primary Surgeon: Alek Anesthesia Provider: CLARA Rodrigez Anesthesia Technique: General LMA Pathology: Left renal stone Indications: Left ureteral stone Findings: Radioopaque stone in left kidney, dusted and fragmented Complications: none - Other Other Information/Narrative: After informed consent was obtained the patient was brought to the OR and laid in the supine position at that point time the the patient was anesthetized per anesthesia protocols. He was placed in the dorsolithotomy position. He was prepped and draped in the usual sterile fashion. A formal timeout was performed reconfirming the patient procedure and laterality. A 22 [place] cystoscope was advanced easily into urinary bladder there was a stent emanating from the left ureteral orifice the stent was grasped and brought to the meatus where a sensor wire was passed through it. A flexible ureteroscope was advanced up the ureter and no stone was seen. In the kidney a radiopaque cluster of stones, the largest about 5 mm in size was seen in the lower pole. Using a 200 m laser fiber at a power of 0.8 and a rate of 15 fragmented the stone to small pieces. The larger pieces were grasped and removed and sent for analysis. There was only dust remaining and there was no stone of size visible on fluoroscopy. A 6 [place] 26 cm double-J ureteral stent was placed with good curling noted in the kidney and good curling noted in the bladder. A Uro-Jet was placed this concluded the procedure and the patient was reversed from anesthesia and brought to the PACU without further incident. All counts were correct.
[2023-07-03 11:17] VITALS: BP 135/68; O2SAT 98
--- NOTE | 2023-07-03 12:57 | ANESTHESIA POST OP EVALUATION ---
Anesthesia Post Eval - Post Anesthesia Eval Vitals: Last Vital Signs Temp 36.3 C L 07/03/23 11:14 Pulse 90 07/03/23 11:14 Resp 14 07/03/23 11:14 BP 135/68 H 07/03/23 11:14 Pulse Ox 98 07/03/23 11:14 O2 Flow Rate CV Function Including HR & BP: Stable Pain Control: Satisfactory Nausea & Vomiting: Negative Mental Status: Baseline Respiratory Status: Airway Patent Hydration Status: Satisfactory Anesthesia Complications: None
--- NOTE | 2023-07-03 17:07 | XRAY Report ---
PROCEDURE: OR C-Arm Procedure INDICATIONS: LEFT LASER CYSTOLITHOTRIPSY FLUORO TIME: 0.1 MIN TECHNIQUE: 2 intraoperative fluoroscopic images of left abdomen were obtained. COMPARISON: CT of abdomen and pelvis dated 06/20/2023 FINDINGS: Intraoperative fluoroscopic images shows left-sided ureteral stent in place. IMPRESSION: Fluoroscopy guidance was provided intraoperatively for left laser cystolithotripsy performed by the [facility] physician. Reviewed by: Wojciech Castillo MD on 07/03/2023 5:06 PM PDT Approved by: Wojciech Castillo MD on 07/03/2023 5:06 PM PDT Station ID: [id number]
== END 2023-07-03 08:09 | disposition home or self-care (01) ==
LOC: SDS 08:08
PROVIDERS: ATTEND Urology
PROC: 0TC18ZZ Extirpation of Matter from Left Kidney, Via Natural or Artificial Opening Endoscopic (ICD-10-PCS; principal; 2023-07-03 09:45)
DX: N20.0 Calculus of kidney (principal); E11.9 Type 2 diabetes mellitus without complications; I10 Essential (primary) hypertension; G47.30 Sleep apnea, unspecified; Z79.84 Long term (current) use of oral hypoglycemic drugs; Z79.899 Other long term (current) drug therapy; Z87.891 Personal history of nicotine dependence
CPT/HCPCS: 52356; C1758; C2617; J7120